=== PATIENT | female | born 1945 | race Caucasian/White ===

== ENCOUNTER → 2016-08-04 | Outpatient (CLI) | payer OTHER, MEDICARE | LOC: FIMAGING 08:53 | PROVIDERS: ATTEND Orthopaedic Surgery Orthopaedic Surgery of the Spine | DX: Z09 Encounter for follow-up examination after completed treatment for conditions other than malignant neoplasm (principal); Z98.890 Other specified postprocedural states ==

== ENCOUNTER → 2016-08-30 | Outpatient (CLI) | payer OTHER, MEDICARE | LOC: BMCIMAGING 11:00 | DX: Z12.31 Encounter for screening mammogram for malignant neoplasm of breast (principal) | CPT/HCPCS: G0202 ==

== ENCOUNTER → 2016-11-03 | Outpatient (CLI) | payer OTHER, MEDICARE | LOC: FIMAGING 08:32 | PROVIDERS: ATTEND Orthopaedic Surgery Orthopaedic Surgery of the Spine | DX: Z09 Encounter for follow-up examination after completed treatment for conditions other than malignant neoplasm (principal); Z98.1 Arthrodesis status; M41.86 Other forms of scoliosis, lumbar region ==

== ENCOUNTER → 2017-09-05 | Outpatient (CLI) | payer OTHER, MEDICARE | LOC: BMCIMAGING 08:56 | PROVIDERS: ATTEND Family Medicine | DX: Z12.31 Encounter for screening mammogram for malignant neoplasm of breast (principal) ==

== ENCOUNTER 2018-07-30 08:30 | Emergency (ER) | payer OTHER, MEDICARE ==
--- NOTE | 2018-07-30 08:40 | EDPHY ---
H & P Stated Complaint: projectile vomiting/diarrhea since Tuesday. Time Seen by Provider: 07/30/18 08:40 - Personal History Current Tetanus Diphtheria and Acellular Pertussis (TDAP): Yes Tetanus Vaccine Date: 2002 - Medical/Surgical History Hx Asthma: Yes Hx Chronic Respiratory Disease: No Hx Diabetes: No Hx Cardiac Disease: No Hx Renal Disease: No Hx Cirrhosis: No Hx Alcoholism: No Hx HIV/AIDS: No Hx Splenectomy or Spleen Trauma: No Other PMH: osteoarthritis, spondylolisthesis, orif left shoulder 2013, R FOOT RECONSTRUCTION, L FOOT HAMMER TOE R/T NEUROMONA - Social History Smoking Status: Former smoker Constitutional: Initial Vital Signs Temperature (C) 36.5 C 07/30/18 08:31 Heart Rate 104 H 07/30/18 08:31 Respiratory Rate 16 07/30/18 08:31 Blood Pressure 138/90 H 07/30/18 08:31 O2 Sat (%) 96 07/30/18 08:31 O2 Delivery Mode Room Air Allergies/Adverse Reactions: ampicillin [Ampicillin] Allergy (Intermediate, Verified 07/30/18 08:36) Diarrhea azithromycin [From Zithromax] Allergy (Intermediate, Verified 07/30/18 08:36) Other-Enter Comments lactose [Lactose] Allergy (Intermediate, Verified 07/30/18 08:36) GI UPSET rofecoxib [From Vioxx] Allergy (Intermediate, Verified 07/30/18 08:36) Other-Enter Comments ENVIRONMENTAL Allergy (Mild, Uncoded 11/18/09 11:05) Other-Enter Comments Home Medications: Medication Instructions Recorded Atorvastatin Calcium [Lipitor 10 5 mg PO 1800 #0 tab 02/19/16 mg (*)] Medical Decision Making ED Course/Re-evaluation: CHIEF COMPLAINT: "Stomach flu" HISTORY OF PRESENT ILLNESS: The patient is a 73 y/o female with a history of numerous orthopedic procedures complaining of having the "stomach flu". Starting yesterday morning at 3:00am she had 3-4 episodes of "projectile vomiting". After the vomiting episodes stopped she started to have diarrhea, which she is still having. She is wearing depends as she cannot control the bowel movements. Currently she is also nauseated and has a decreased appetite. She has been able to drink clear liquids and a probiotic. She last took antibiotics (Amoxicillin) 2 weeks ago. She is concerned that she has salmonella or norovirus as she had this several years ago. She denies being around anyone with similar symptoms. No fever, chest pain, shortness of breath, urinary complaints, numbness, paresthesias. REVIEW OF SYSTEMS: A comprehensive 10 system review of systems is otherwise negative aside from elements mentioned in the history of present illness and medical decision making. PHYSICAL EXAM: HR, BP, O2 Sat, RR. Temp noted General Appearance: Alert, well hydrated, appropriate, and non-toxic appearing. Head: Atraumatic without scalp tenderness or obvious injury Eyes: Pupils equal, round, reactive to light and accommodation, EOMI, no trauma , no injection. Ears: Clear bilaterally, no perforation, normal landmarks Nose: Atraumatic, no rhinorrhea, clear. Throat: There is no erythema or exudates, no lesions, normal tonsils, mucous membranes dry. Neck: Supple, 2+ carotid upstroke, nontender, no lymphadenopathy. Respiratory: No retractions, no distress, no wheezes, and no accessory muscle use. Lungs are clear to auscultation bilaterally. Cardiovascular: Regular rate and rhythm, no murmurs, rubs, or gallops. Bilateral carotid, radial, dorsalis pedis, and posterior tibial pulses intact. Good capillary refill all extremities. Gastrointestinal: Abdomen is soft, nontender, non-distended, no masses, no rebound, no guarding, no peritoneal signs. Musculoskeletal: Normal active ROM of all extremities, atraumatic. Neurological: Alert, appropriate, and interactive. The patient has normal DTRs and non-focal cranial nerves, motor, sensory, and cerebellar exam. Skin: No rashes, good turgor, no nodules on palpation. Past medical history: Osteoarthritis, spondylolisthesis, neuronoma Past surgical history: ORIF left shoulder, right foot reconstruction Family history: Denies Social history: Retired, , lives in [place] for grandson during the day DIAGNOSTICS/PROCEDURES/CRITICAL CARE TIME: Not indicated. DIFFERENTIAL DIAGNOSIS: The differential diagnosis for the patient's nausea and vomiting included but was not limited to gastroenteritis, gastritis, appendicitis, and medication side effect. MEDICAL DECISION MAKING: The patient is a 73 y/o female with a history of numerous orthopedic procedures presenting with nausea, vomiting, and diarrhea onset yesterday morning. On exam she has a benign abdomen but does have dry mucous membranes. Labs ordered; 1L IV NS and 4mg IV Zofran administered. 1033: Reassessed patient and discussed normal laboratory studies. She has not provided a stool sample yet, but we will give her materials to drop off a stool sample. She is feeling better after NS and Zofran; take home Zofran administered. Return precautions provided; patient is comfortable with this plan. - Data Points Laboratory Results: Laboratory Results 07/30/18 09:00 07/30/18 09:00 07/30/18 07/30/18 07/30/18 09:15 09:00 09:00 WBC 6.16 10^3/uL 10^3/uL (3.80-9.50) RBC 5.82 10^6/uL H 10^6/uL (4.18-5.33) Hgb 15.7 g/dL g/dL (12.6-16.3) POC Hgb 17.0 gm/dL H gm/dL (12.6-16.3) Hct 47.8 % H % (38.0-47.0) POC Hct 50 % H % (38-47) MCV 82.1 fL fL (81.5-99.8) MCH 27.0 pg L pg (27.9-34.1) MCHC 32.8 g/dL g/dL (32.4-36.7) RDW 14.5 % % (11.5-15.2) Plt Count 240 10^3/uL 10^3/uL (150-400) MPV 10.1 fL fL (8.7-11.7) Neut % (Auto) 67.1 % % (39.3-74.2) Lymph % (Auto) 21.6 % % (15.0-45.0) Angelina % (Auto) 10.4 % % (4.5-13.0) Eos % (Auto) 0.2 % L % (0.6-7.6) Baso % (Auto) 0.5 % % (0.3-1.7) Nucleat RBC Rel Count 0.0 % % (0.0-0.2) Absolute Neuts (auto) 4.14 10^3/uL 10^3/uL (1.70-6.50) Absolute Lymphs (auto) 1.33 10^3/uL 10^3/uL (1.00-3.00) Absolute Monos (auto) 0.64 10^3/uL 10^3/uL (0.30-0.80) Absolute Eos (auto) 0.01 10^3/uL L 10^3/uL (0.03-0.40) Absolute Basos (auto) 0.03 10^3/uL 10^3/uL (0.02-0.10) Absolute Nucleated RBC 0.00 10^3/uL 10^3/uL (0-0.01) Immature Gran % 0.2 % % (0.0-1.1) Immature Gran # 0.01 10^3/uL 10^3/uL (0.00-0.10) POC Sodium 142 mEq/L mEq/L (135-145) Sodium 139 mEq/L mEq/L (135-145) POC Potassium 3.1 mEq/L L mEq/L (3.3-5.0) Potassium 3.4 mEq/L L mEq/L (3.5-5.2) POC Chloride 105 mEq/L mEq/L (97-110) Chloride 107 mEq/L mEq/L (97-110) Carbon Dioxide 22 mEq/l mEq/l (22-31) POC Total CO2 22 mEq/L mEq/L (22-31) Anion Gap 10 mEq/L mEq/L (6-14) POC BUN 25 mg/dL H mg/dL (7-23) BUN 26 mg/dL H mg/dL (7-23) Creatinine 0.8 mg/dL mg/dL (0.6-1.0) POC Creatinine 0.8 mg/dL mg/dL (0.6-1.0) Estimated GFR > 60 Glucose 118 mg/dL H mg/dL (70-100) POC Glucose 121 mg/dL H mg/dL (70-100) Calcium 9.2 mg/dL mg/dL (8.5-10.4) Medications Given: Discontinued Medications Sodium Chloride (Ns) 1,000 mls @ 0 mls/hr IV EDNOW ONE; Wide Open PRN Reason: Protocol Stop: 07/30/18 08:55 Last Admin: 07/30/18 09:07 Dose: 1,000 mls Ondansetron HCl (Zofran) 4 mg IVP EDNOW ONE Stop: 07/30/18 08:55 Last Admin: 07/30/18 09:08 Dose: 4 mg Point of Care Test Results: Chemistry 07/30/18 09:15 POC Sodium 142 mEq/L mEq/L (135-145) POC Potassium 3.1 mEq/L L mEq/L (3.3-5.0) POC Chloride 105 mEq/L mEq/L (97-110) POC Total CO2 22 mEq/L mEq/L (22-31) POC BUN 25 mg/dL H mg/dL (7-23) POC Creatinine 0.8 mg/dL mg/dL (0.6-1.0) POC Glucose 121 mg/dL H mg/dL (70-100) ISTAT H&H 07/30/18 09:15 POC Hgb 17.0 gm/dL H gm/dL (12.6-16.3) POC Hct 50 % H % (38-47) Departure - Departure Disposition: Home, Routine, Self-Care Clinical Impression: Acute gastroenteritis Nausea & vomiting Qualifiers: Vomiting type: unspecified Vomiting Intractability: non-intractable Qualified Code(s): R11.2 - Nausea with vomiting, unspecified Condition: Good Instructions: Gastroenteritis (ED), Acute Nausea and Vomiting (ED), Food Poisoning (ED) Additional Instructions: 1. Increase fluid intake. 2. Take 4mg oral Zofran as needed for nausea. 3. Follow-up with your primary doctor within 72 hours. 4. Return to the Emergency Department for fever, chest pain, shortness of breath , increasing pain, or other worsening of condition. 5. Please return the stool sample to the lab. Referrals: Parul Benavides MD [Primary Care Provider] - As per Instructions Report Scribed for: Cameron Mcguire Report Scribed by: Liliane Olivas Date of Report: 07/30/18 Time of Report: 09:45
[2018-07-30] MEDS ORDERED: NS 1,000 ML IV ONE (08:54)
[2018-07-30] MEDS ORDERED: ONDANSETRON 4 MG/2 ML VIAL IVP ONE (08:54)
[2018-07-30 09:09] LABS: PLATELET COUNT 240 10^3/uL (150-400)
[2018-07-30 10:22] VITALS: BP 137/82
[2018-07-30] MEDS ORDERED: ONDANSETRON 4MG PREPACK#2 BTL TAKEHOME ONE (10:31)
== END 2018-07-30 10:46 | disposition home or self-care (01) ==
DX: K52.9 Noninfective gastroenteritis and colitis, unspecified (principal); E86.9 Volume depletion, unspecified
CPT/HCPCS: 96361; 96374; 99284; J2405; 82435-PO; 82565-PO; 82947-PO; 84132-PO; 84295-PO; 84520-PO; 85014-ER

== ENCOUNTER → 2018-10-11 | Outpatient (CLI) | payer OTHER, MEDICARE | LOC: BMCIMAGING 08:57 | PROVIDERS: ATTEND Family Medicine | DX: Z12.31 Encounter for screening mammogram for malignant neoplasm of breast (principal) ==